=== PATIENT | male | born 1950 | race Caucasian/White ===

== ENCOUNTER 2025-04-30 08:55 | Emergency (ER) | payer MEDICARE, OTHER, SELFPAY ==
--- OUTSIDE RECORDS SUMMARY | 2025-04-30 08:58 | XMS_ITS | Clinical Summary ---
Author Organization [email or web address] Address [address] [place] [id number] Care Team Providers Care Bricklayer Supervisor Name Role Phone Taiwo Moy MD Primary Care Provider Allergies No known active allergies Medications aspirin chewable 81 mg chewable tablet Take 1 tablet by mouth once daily. 0 10/22/19 14 Active nitroglycerin (NITROSTAT) 0.4 mg sublingual tabletIndications: CAD in [place] artery Place 1 tablet under the tongue every 5 minutes if needed for Chest Pain (For chest pain x 3 doses.). 25 tablet 1 06/23/20 16 Active melatonin 5 mg TbDi Take by mouth. 0 08/13/19 19 Active b complex vitamins (SUPER B-50 COMPLEX) capsule Take 1 capsule by mouth once daily. 0 08/13/19 19 Active cholecalciferol (VITAMIN D-3) 2,000 unit capsule Take 1 capsule by mouth once daily. 0 08/13/19 19 Active ibuprofen (ADVIL; MOTRIN) 200 mg tablet Take 1 tablet by mouth 4 times daily if needed. 0 08/13/19 19 Active blood-glucose meterIndications:C ontrolled type 2 diabetes mellitus with complication, without long-term current use of insulin (HC) Dispense meter, test strips, lancets covered by pt ins. E11.9 NIDDM type II - Test 1 time/day 1 Device 07/07/20 19 Active sildenafil citrate (VIAGRA) 100 mg tabletIndications: Erectile dysfunction, unspecified erectile dysfunction type TAKE ONE TABLET BY MOUTH 30 MINUTES TO 4 HOURS PRIOR TO SEXUAL ACTIVITY *MAX OF 100 MG IN 24 HOURS* 6 Tablet 5 01/29/20 23 Active rosuvastatin (CRESTOR) 20 mg tabletIndications: Hyperlipidemia, unspecified hyperlipidemia type TAKE 1 TABLET BY MOUTH DAILY 90 Tablet 2 12/17/19 24 Active empagliflozin (Jardiance) 25 mg tabletIndications: Controlled type 2 diabetes mellitus with complication, without long-term current use of insulin (HC) Take 1 Tablet (25 mg) by mouth once daily. Start after one month on 10mg daily. 90 Tablet 1 03/07/20 24 Active blood sugar diagnostic (Accu-Chek Linda Plus test strp) stripIndications:C ontrolled type 2 diabetes mellitus with complication, without long-term current use of insulin (HC) TEST BLOOD SUGAR ONCE A DAY DIRECTED 100 Each 3 04/30/20 24 Active fluticasone (50 mcg per actuation) nasal solution (FLONASE)Indicatio ns:Rhinitis medicamentosa Inhale 2 Sprays in both nostrils once daily. 16 g 5 07/03/20 24 Active gabapentin 100 mg capsuleIndications :Peripheral sensory neuropathy TAKE 2 CAPSULE BY MOUTH AT BEDTIME 180 Capsule 1 11/12/19 25 Active omeprazole 20 mg Delayed-Release capsuleIndications :Chronic GERD TAKE 1 TABLET(20 MG) BY MOUTH EVERY DAY 90 Capsule 1 12/30/19 25 Active metFORMIN (GLUCOPHAGE XR) 500 mg Extended-Release tabletIndications: Controlled type 2 diabetes mellitus with complication, without long-term current use of insulin (HC) TAKE 2 TABLETS(100 0 MG) BY MOUTH TWICE DAILY WITH MEALS 120 Tablet 02/05/20 25 Active metoprolol tartrate (LOPRESSOR) 25 mg tabletIndications: Essential hypertension TAKE 1 TABLET BY MOUTH TWICE DAILY 180 Tablet 04/09/20 25 Active lisinopriL (PRINIVIL; ZESTRIL) 20 mg tabletIndications: Essential hypertension TAKE 1 TABLET(20 MG) BY MOUTH DAILY 90 Tablet 04/09/20 25 Active lisinopriL 20 mg tabletIndications: Essential hypertension TAKE 1 TABLET(20 MG) BY MOUTH DAILY 90 Tablet 12/30/19 25 025 Discontinued metoprolol tartrate 25 mg tabletIndications: Essential hypertension TAKE 1 TABLET BY MOUTH TWICE DAILY 180 Tablet 12/30/19 25 025 Discontinued Active Problems Problem Noted Date Diagnosed Date Stage 3a chronic kidney disease 11/15/2021 LUIS ENRIQUE 08/22/2019 AHI-25 08/25/2019 Controlled type 2 diabetes m ellitus with complication, without long-term current use of insulin 07/07/2019 Obesity, Class II, BMI 35-39.9 08/13/2018 L5-S1 extruded disk herniation 12/22/2013 Right S1 Radiculopathy 12/22/2013 CAD; NSTEMI, NILSA to RCA 2013. 10/21/2013 Overview (10/21/2013): -10/19/[address] Elevation Myocardial Infarction. Severe single vessel coronary disease in a right dominant system. 100% proximal RCA culprit with KASSANDRA-III flow LV Pressure = 152/45. Drug Eluting Stent to Proximal RCA. Enrolled in post-conditioning trial. Plavix for 1 year Adjustment disorder with depressed mood 01/18/20 09 Unspecified essential hypertension Other and unspecified hyperlipidemia Resolved Problems Problem Noted Date Diagnosed Date Resolved Date Routine adult health maintenance 09/27/2018 07/07/2019 Overview (09/27/2018): Colonoscopy 09/2018 normal, repeat in 10 years CAD in [place] artery 06/23/2016 021 Prediabetes 06/08/2016 07/27/2020 Examination for normal mino rison for clinical research 01/13/2014 11/02/2020 Overview (01/13/2014): Research Study Participant: Post Conditioning II study protocol. Post conditioning -4 (30 second) balloon inflations/deflations prior to stenting or standard of care for STEMI. Will have a cardiac MRI at baseline (before discharge) and 3 and 12 months. Followed in [facility] for research visits. See hard copy chart for study summary. Contact research nurse with questions: Nina Martinez RN @ pager: [phone] Or PI: Karsten Gurrola MD Renal insufficiency 10/23/2013 07/27/19 21 STEMI (ST elevation myocardial infarction) 10/20/2013 11/02/2020 CKD (chronic kidney disease) 08/15/2022 Encounters Date Type Department Care Team Description 04/30/2025 Nurse Triage [address] [place] [address] Taiwo Moy MD High Blood Sugar 04/29/2025 Refill [facility] [address] [place] [address] Taiwo Moy MD Refill Request (Metformin) 04/13/2025 Refill [facility] [address] [place] [address] Taiwo Moy MD Refill Request (Metformin) 04/08/2025 Refill [facility] [address] [place] [address] Taiwo Moy MD Refill Request (Metoprolol Tartrate, Lisinopril) 02/02/2025 Refill [facility] [address] [place] [address] Taiwo Moy MD Refill Request (Metformin) from Last 3 Months Immunizations Immunization Administration Dates Next Due COVID-19 vaccine (Moderna 100mcg/0.5mL) PF, MDV 11/01/2021,06/08/2021,09/15/2020,08/18 COVID-19 vaccine (Oxford Bio[employer]ronometrics-Bio NTech 30mcg/0.3mL) 12YO+ BIVALENT PF, MDV 11/17/2022 Influenza A (H1N1), Inactivated 07/21/2009 Influenza, High-dose Inactivated 03/29/2024 Influenza, High-dose Quadriv alent Inactivated 04/22/2022,03/13/2020 Influenza, IIV3 (Age 6-35 mos) 03/29/2009 Influenza, IIV3 (Age >=3 years) 04/14/20 13,04/09/2012,04/10/2011,04/04,08/24/2004 Influenza, IIV4 06/23/2016,03/18/2015,05/20/2014 Influenza, IIV4 (=>6mos) MDV 07/20/2017 Influenza, Inactivated AIIV4 (Age 65+ Years) Preserv Free 03/24/2023,04/08/2021 Influenza, Inactivated IIV3 (Age 65+ Years) Preserv Free 06/25/2019,08/13/2018 Pneumococcal Poly,23-Valent (Pneumovax) 09/22/2019 Pneumococcal conj 13-Valent (Prevnar 13) 08/13/2018,05/20/2014 Pneumococcal, Unspecified 09/22/2019 RSV, Recombinant ADJ Reconst ituted (Arexvy 120MCG/0.5mL) 04/21/2023 Rabies Vaccine 05/30/1999 Td (Age >=7 Years) 05/26/1999 Tdap 11/02/2020,06/10/2010 Zoster (Shingrix-RZV, recombinant) 01/15/2020, Zoster (Zostavax-ZVL, live) 05/20/2014 Family History Medical History Relation Name Comments Kidney failure Father dialysis towa rds end of life. Cancer-breast Mother Hyperlipidemia Mother Stroke Mother early 50's, now in 80's as of 06/17. Cancer-colon Neg. 1 Cancer-prostate Neg. 2 Cancer-breast Sister 1 Cancer-breast Sister 2 cervical Relation Name Status Comments Father Mother Alive Neg. 1 Neg. 2 Sister 1 Sister 2 Social History Tobacco Use Types Packs/Day Years Used Date Smoking Tobacco: Never Smokeless Tobacco: Never Tobacco Cessation:Counseling Given: No Alcohol Use Standard Drinks/Week Comments Yes 0 (1 standard drink = 0.6 oz pur e alcohol) rare PHQ-2 Answer Date Recorded PHQ-2 TOTAL SCORE 0 07/03/2024 Social Connections Answer Date Recorded Do you often feel lonely or isolated from those around you? 0 07/17/2023 Financial Resource Strain Answer Date R ecorded Difficulty of Paying Living Expenses 3 07/17/2023 Difficulty of Paying Living Expenses Not on file 07/17/2023 Food Insecurity Answer Date Recorded Do you worry your food will run out before you are able to buy more? 1 07/17/2023 Transportation Needs Answer Date Record ed Does lack of transportation keep you from medica l appointments? 1 07/17/2023 Does lack of transportation keep you from work, meetings or getting things that you need? 1 07/17/2023 Housing Stability Answer Date Recorded What is your housing situation today? 1 07/17/2023 Utilities Answer Date Recorded Do you have trouble paying f or utilities (for example, heat, electricity, water, phone)? 1 07/17/2023 Sex and Gender Information Value Date Recorded Sex Assigned at Not on file Legal Sex Male 6:58 AM OUTPATIENT PHLEBOTOMIST Gender Identity Not on file Sexual Orientation Not on file Obstetrics History Last Filed Vital Signs Vital Sign Reading Time Taken Comments Blood Pressure 152/75 07/03/2024 4:39 PM OUTPATIENT PHLEBOTOMIST Pulse 78 07/03/2024 4:13 PM OUTPATIENT PHLEBOTOMIST Temperature 36.3 C (97.4 F) 08/15/2022 9:44 AM OUTPATIENT PHLEBOTOMIST Respiratory Rate 20 06/30/2019 10:4 0 AM OUTPATIENT PHLEBOTOMIST Oxygen Saturation 94% 07/03/2024 4:13 PM OUTPATIENT PHLEBOTOMIST Inhaled Oxygen Concentration - - Weight 117.7 kg (259 lb 6.4 oz) 07/03/2024 4:13 PM OUTPATIENT PHLEBOTOMIST Height 188 cm (6' 2) 07/03/2024 4:13 PM OUTPATIENT PHLEBOTOMIST Body Mass Index 33.3 07/03/2024 4:13 PM OUTPATIENT PHLEBOTOMIST Plan of Treatment Health Maintenance Due Date Last Done Comments COVID-19 vaccine series ( season) 2025 03/29/2024, 04/21/2023, 11/17/2022, Additional history exists Influenza Vaccine (#1) 2025 , 03/24/2023, 04/08/2021, Additional history exists BMI (ht and wt on same day) for age 18+ 07/03/2025 07/03/2024, 11/17/2022, 11/15/2021, Additional history exists Depression screening for age 12+ 07/04/2025 07/04/2024, 07/03/2024, 11/15/2021, Additional history exists Medicare Wellness for age 65+ 07/04/2025 07/03/2024 Colonoscopy through age 75 09/27/202809/27, 09/27/2018, 09/27/2018, Additional history exists Lipids for age 45-75 03/07/2029 03/07/2024, 07/17/2023, 07/17/2023, Additional history exists Tetanus booster 11/02/2030 11/02/2020, 12/09/2009, 05/26/1999 Hepatitis C screening for age 18-79 Completed 03/18/2015 Pneumococcal series for age 50+ Completed 09/22/2019, 09/22/2019, 08/13/2018, Additional history exists Zoster (shingles) series for age 50+ Completed 01/15/2020, 09/22/2019, 05/20/2014 RSV vaccine for adults or Completed 04/21/2023 Hepatitis B series for 19+ Aged Out N o longer eligible based on patient's age to complete this topic Procedures Procedure Name Priority Date/Time Associated Diagnosis Comments LIPID PANEL W REFLEX MEASURED LDL Routine 03/07/2024 9:29 AM CDT Controlled type 2 diabetes mellitus with complication, without long-term current use of insulin (HC) COLONOSCOPY SCREENING Routine 09/27/2018 9:08 AM CDT Screening for colon cancer ANTI HCV Routine 03/18/2015 12:46 PM CDT Need for hepatitis C screening test from Last 3 Months or Most Recently Relevant to Health Maintenance Results * (ABNORMAL) LIPID PANEL W REFLEX MEASURED LDL (03/07/2024 9:29 AM CDT) CHOLESTEROL,TOTAL 131 100 - 199 mg/dL 03/07/2024 6:03 PM CDT [facility] Comment: Cholesterol, Total Reference Ranges Desirable <200 mg/dL Borderline 200-239 mg/dL High >=240 mg/dL TRIGLYCERIDES 296(H) <150 mg/dL 03/07/2024 6:03 PM CDT [facility] HDL CHOLESTEROL 37(L) >40 mg/dL 6:03 PM CDT [facility] NON-HDL CHOLESTEROL 94 <145 mg/dl 03/07/2024 6:03 PM CDT [facility] CHOL/HDL RATIO 3.54 <4.50 03/07/2024 6:03 PM CDT [facility] LDL CHOLESTEROL 35 <=130 mg/dL 03/07/2024 6:03 PM CDT [facility] VLDL CHOLESTEROL 59(H) <=30 mg/dL 03/07/2024 6:03 PM CDT [facility] PROVIDER ORDERED STATUS RANDOM 03/07/2024 6:03 PM CDT [facility] Blood BLOOD SPECIMEN / Unknown Venipuncture / Unknown 03/07/2024 9:29 AM CDT 03/07/2024 9:29 AM CDT us Taiwo Moy MD CHEMISTRY Final Result Performing Organization Address City/Special Care [facility]/ZIP Co de Phone Number [facility] [address] [place] [address], * COLONOSCOPY SCREENING (09/27/2018 9:08 AM CDT) us Taiwo Moy MD GI PROCEDURE ORD Final Result * ANTI HCV [72317.2] (03/18/2015 12:46 PM CDT) HEPATITIS C ANTIBODY Non-Reacti ve Non-Reacti ve 03/18/2015 4:47 PM CDT [facility] Blood specimen (specimen) BLOOD SPECIMEN / Unknown Venipuncture / Unknown 03/18/2015 12:46 PM CDT 03/18/2015 12:46 PM CDT Narrative [facility] - 03/18/2015 4:47 PM CDT Antibodies to HCV not detected; does not exclude the possibility of exposure to HCV. us Taiwo Moy MD SEND OUTS Final Result Performing Organization Address City/Special Care [facility]/ZIP Co de Phone Number [facility] [address] [place] [address], from Last 3 Months or Most Recently Relevant to Health Maintenance Insurance [employer] PPO MR [employer] [facility] [address] [address] [facility] [employer] PPO MR Advance Directives * Full Code (Latest Code Status on File) Date Activated Date Inactivated Comments 10/19/2013 2:33 AM 10/20/2013 6:00 PM Care Teams Bricklayer Supervisor Relationship Specialty Start Date End Date Taiwo Moy MD [address] [place] [address] PCP - General 11/16/06
[2025-04-30 09:00] VITALS: BP 180/79; PULSE 67; RESP 18; TEMP 36.4; O2SAT 97; BMI 32.1
--- NOTE | 2025-04-30 09:08 | ED_ITS ---
HPI - General Adult General Chief complaint: Diabetic Related Problem Stated complaint: High blood sugar Time Seen by Provider: 04/30/25 09:06 History of Present Illness HPI narrative: Patient presents to the [facility] department complaining of a high blood sugar. Patient states he is a type 2 diabetic and has a blood sugar of over 500. Patient states he does not typically take insulin but uses metformin. Patient does not believe this has been going on for very long and typically is in the 200 range. 74-year-old man presenting to the emergency department with concern of high blood sugar. He ran out of his usual metformin, sounds like 1000 mg twice a day, maybe around a month ago. Also around the time that it ran out he stopped checking his blood sugars. He does note that his blood sugar now though is over 500. Urinating as frequently. He is thirsty. He has been increasing his fluid intake. Little bit of a cough more recently. No fever. No rashes. No pains. 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 He would just like to leave the emergency department with some improved blood sugars. Related Data Home Medications ?Medication ?Instructions ?Recorded ?Confirmed gabapentin 100 mg capsule mg PO 12/15/23 06/11/24 lisinopril 10 mg tablet mg PO 12/15/23 06/11/24 metformin 500 mg tablet,extended 1,000 mg PO BID 12/1404/30/25 release 24 hr metoprolol tartrate 25 mg tablet 25 mg PO BID 12/15/23 04/30/25 omeprazole 20 mg capsule,delayed mg PO 12/15/23 release Previous Rx's ?Medication ?Instructions ?Recorded budesonide-formoterol HFA 160 2 puff inhalation BID #1 0.2 grams 04/30/24 mcg-4.5 mcg/actuation aerosol inhaler Allergies Allergy/AdvReac Type Severity Reaction Status Date / Time No Known Drug Allergies Allergy Verified 04/30/25 09:04 Review of Systems Status of ROS: Reports: 6 or more systems reviewed and unremarkable except as noted in History and below [facility] Medical History Myocardial infarction ?I21.9 - Acute myocardial infarction, unspecified (ICD-10) Social History Smoking Status: Never smoker Do you use any of these nicotine containing products: None Second hand tobacco smoke exposure: No How often do you have a drink containing alcohol: never How often do you have six or more drinks on one occasion: Never AUDIT-C Alcohol total score: 0 Non-prescribed substance use: denies use Exam Narrative: Exam Narrative: Pleasant. NAD. Breathing easily. Lungs are clear. Heart in regular rate and rhythm. I do not smell ketones. Oropharynx is a little sticky. Cranial nerves 2-12 to be intact. Moving all extremities without difficulty. He is well- perfused without edema. Abdomen is overweight soft nontender. Const: Vital Signs, click to edit/add: Vital Signs - 24 hr 04/30/25 09:00 Temperature 97.5 F L Pulse Rate [Right Pulse Oximeter] 67 Respiratory Rate 18 Blood Pressure [Ri ght Upper Arm] 180/79 H Pulse Oximetry 97 Oxygen Delivery Me thod Room Air Documenting provider has reviewed patient's vital signs: yes Course Vital Signs Vital signs: Initial Vital Signs Temperature 97.5 F L 04/30/25 09:00 Temperature Source Temporal Artery Scan 04/30/25 09:00 Pulse Rate 67 04/30/25 09:00 Pulse Rhythm Regular 04/30/25 09:00 Pulse Strength 3+ Normal 04/30/25 09:00 Respiratory Rate 18 04/30/25 09:00 Blood Pressure 180/79 H 04/30/25 09:00 Blood Pressure Mean 112 H 04/30/25 09:00 Blood Pressure Position Sitting 04/30/25 09:00 Pulse Oximetry 97 04/30/25 09:00 Oxygen Delivery Method Room Air 04/30/25 09:00 Vital Signs Temperature 97.5 F L 04/30/25 09:00 Pulse Rate 67 04/30/25 09:00 Respiratory Rate 18 04/30/25 09:00 Blood Pressure 180/79 H 04/30/25 09:00 Pulse Oximetry 97 04/30/25 09:00 Oxygen Delivery Method Room Air 04/30/25 09:00 Temperature 97.5 F L 04/30/25 09:00 Pulse Rate 67 04/30/25 09:00 Respiratory Rate 18 04/30/25 09:00 Blood Pressure 180/79 H 10/23/25 09:00 Pulse Oximetry 97 04/30/25 09:00 Oxygen Delivery Method Room Air 04/30/25 09:00 Medications Administered Medications: Discontinued Medications Generic Name Dose Route Start Last Admin Trade Name Sabino PRN Reason Stop Dose Admin Sodium Chloride 1,000 mls @ 1,000 mls/hr 04/30/25 09:18 04/30/25 11:52 0.9 % Sodium Chloride 1000 Ml IV 04/30/25 10:17 Infused .Q1H ONE Infusion Insulin Human Regular 15 unit 04/30/25 09:18 04/30/25 10:08 Insulin Regular, Human 100 Unit/Ml Vial IVP 04/30/25 09:19 15 unit ONCE ONE Administration Medical Decision Making MDM Narrative Medical decision making narrative: Will offer IV hydration. Check labs for red flags; evidence of infection. Verify liver and renal function. Give some insulin which I discussed will be likely minimal and with transient effect on blood sugar. Get back on usual medication regimen with close follow-up. Given a L normal saline. Labs show initial labs blood sugar of 459. Was dose with 15 units of regular insulin. Labs reassuring. Not acidotic. Normal white count. Creatinine of 1.7 which he says is not atypical with some degree of renal dysfunction. I calculate corrected sodium at 136 Recheck blood sugar an hour after dosing insulin and blood sugar was in the mid 200s. We did spend some time discussing mechanism of medications and concerns of side effects by Mr. Pang He feels well and requesting departure. It would seem that nonadherence to medical treatment is the likely cause for this hyperglycemia. See patient discharge plan for further discussion Be sure you are following a good diabetic diet. Stay well-hydrated. Over the next week consider sugar free drinks that would contain electrolytes. Try to get in a little heart pumping exercise every day. For now continue with your metformin taking at least 500 mg twice daily. I think you would be okay to take a full dose other than your concerns of potential side effects. I would try to schedule with your primary care provider to be seen as soon as possible to discuss further diabetic management per your concern. In your discharge paperwork should be a printout of your labs for today. Medical Records Medical records reviewed: Yes I reviewed the patient's medical records Lab Data Lab results reviewed: Yes I reviewed the patient's lab results Labs: Lab Results 04/30/25 04/30/25 Range/Units 09:37 10:28 WBC 7.21 (4.50-11.00) K/uL RBC 5.36 (4.30-5.90) m/uL Hgb 16.4 (13.5-17.5) gm/dL Hct 47.1 (37.0-53.0) % MCV 88 (80-100) fL MCH 31 (26-34) pg MCHC 35 (32-36) gm/dL RDW Coeff of Camille 12.6 (11.5-15.5) % Plt Count 166 (140-440) K/uL Neut % (Auto) 62.6 (42.0-72.0) % Lymph % (Auto) 21.1 (20-44) % Travis % (Auto) 7.6 (0.0-11.0) % Eos % (Auto) 7.4 H (0.0-7.0) % Baso % (Auto) 1.0 (0.0-3.0) % Neut # (Auto) 4.52 (1.7-7.0) K/uL Lymph # (Auto) 1.52 (0.90-2.90) K/uL Travis # (Auto) 0.50 (0.00-0.90) K/UL Eos # (Auto) 0.50 (0.00-0.50) K/uL Baso # (Auto) 0.07 (0.00-0.30) K/uL Abs Immat Gran (auto) 0.02 (0.00-0.30) K/uL Imm/Tot Granulo (auto) 0.3 % VBG pH 7.318 L (7.32-7.43) VBG pCO2 47 (40-50) mmHG VBG pO2 < 30.1 (25-47) mmHG VBG HCO3 24 (21-28) mmol/L Sodium 130 L (135-149) mmol/L Potassium 4.8 (3.6-5.1) mmol/L Chloride 96 (96-114) mmol/L Carbon Dioxide 23 (20-32) mmol/L Anion Gap 11 (7-15) mEq/L BUN 40 H (7-30) mg/dL Creatinine 1.7 H (0.5-1.5) mg/dL Estimated Creat Clear 45.67 Estimated GFR 42 ml/min Glucose 459 H* (60-115) mg/dL Lactate 1.7 (0.5-1.9) mmol/L Calcium 9.8 (8.4-10.6) mg/dL Total Bilirubin 0.8 (0.1-1.5) mg/dL Direct Bilirubin 0.4 (0.0-0.5) mg/dL AST 49 H (12-35) U/L ALT 57 H (4-50) U/L Alkaline Phosphatase 145 (40-150) U/L Total Protein 7.2 (6.0-8.3) g/dL Albumin 4.3 (3.3-5.0) g/dL Urine Color Yellow (Yellow) Urine Appearance Clear (Clear) Urine pH 5.0 (5.0-8.5) Ur Specific [place] 1.010 (1.000-1.030) Urine Protein Negative (Negative) Urine Glucose (UA) 3+ A (Negative) Urine Ketones Negative (Negative) Urine Blood Negative (Negative) Urine Nitrite Negative (Negative) Urine Bilirubin Negative (Negative) Urine Urobilinogen 0.2 (0.2-1.0) Ur Leukocyte Esterase Negative (Negative) Urine RBC 0-2 (0-2) Urine WBC 0-2 (0-5) Ur Squamous Epith Cells None (None-Few) Urine Bacteria None (None) Discharge Plan Discharge Clinical Impression: Hyperglycemia, Hyponatremia Patient Disposition: Home, Self-Care Condition: Improved Additional Instructions: Be sure you are following a good diabetic diet. Stay well-hydrated. Over the next week consider sugar free drinks that would contain electrolytes. Try to get in a little heart pumping exercise every day. For now continue with your metformin taking at least 500 mg twice daily. I think you would be okay to take a full dose other than your concerns of potential side effects. I would try to schedule with your primary care provider to be seen as soon as possible to discuss further diabetic management per your concern. In your discharge paperwork should be a printout of your labs for today. Prescriptions: No Action omeprazole 20 mg capsule,delayed release(DR/EC) PO metformin 500 mg tablet extended release 24 hr 1,000 mg PO BID metoprolol tartrate 25 mg tablet 25 mg PO BID lisinopril 10 mg tablet PO gabapentin 100 mg capsule PO budesonide-formoterol 160-4.5 mcg/actuation HFA aerosol inhaler 2 puff inhalation BID Qty: 10.2 0RF Rx Instructions: OK to use every 4 hours between scheduled doses as needed for shortness of breath/wheezing. Be sure to rinse mouth with water and spit out after each use. Follow Up/Referrals: Taiwo Moy MD [Primary Care Provider, Family Practice] Stand Alone Forms: [facility] Info Instructions Procedures ABG Interpretation ABG Results: 04/30/25 09:37 VBG pH 7.318 L VBG pCO2 47 VBG pO2 < 30.1 VBG HCO3 24
[2025-04-30 09:41] LABS: HCO3 VBG 24 mmol/L (21-28); Lactate* 1.7 mmol/L (0.5-1.9); PCO2 VBG 47 mmHG (40-50); PO2 VBG < 30.1 mmHG (25-47); pH VBG 7.318 (7.32-7.43)
[2025-04-30 09:47] LABS: Hematocrit* 47.1 % (37.0-53.0); Hemoglobin* 16.4 gm/dL (13.5-17.5); Immature Granulocytes Abs Auto 0.02 K/uL (0.00-0.30); Immature Granulocytes Pct Auto 0.3 %; Lymphocytes Absolute Auto 1.52 K/uL (0.90-2.90); Mean Corpuscular HGB Conc 35 gm/dL (32-36); Mean Corpuscular Hemoglobin 31 pg (26-34); Mean Corpuscular Volume 88 fL (80-100); RDW Coefficient of Variation % 12.6 % (11.5-15.5); Red Blood Count* 5.36 m/uL (4.30-5.90); White Blood Count* 7.21 K/uL (4.50-11.00)
[2025-04-30 09:55] LABS: Slide Review Reflex No
[2025-04-30 09:58] LABS: Albumin* 4.3 g/dL (3.3-5.0); Chloride* 96 mmol/L (96-114); Potassium* 4.8 mmol/L (3.6-5.1); Sodium* 130 mmol/L (135-149)
[2025-04-30 10:01] LABS: Alanine Aminotransferase* 57 U/L (4-50); Alkaline Phosphatase* 145 U/L (40-150); Anion Gap 11 mEq/L (7-15); Aspartate Amino Transferase* 49 U/L (12-35); Bilirubin Direct* 0.4 mg/dL (0.0-0.5); Bilirubin Total* 0.8 mg/dL (0.1-1.5); Blood Urea Nitrogen* 40 mg/dL (7-30); Carbon Dioxide* 23 mmol/L (20-32); Creatinine* 1.7 mg/dL (0.5-1.5); Est. Creatinine Clearance* 45.67; Estimated Glomerular Filt Rate 42 ml/min; Total Protein* 7.2 g/dL (6.0-8.3)
[2025-04-30 10:02] LABS: Calcium* 9.8 mg/dL (8.4-10.6)
[2025-04-30] MEDS: INSULIN REGULAR, HUMAN 100 UNIT/ML VIAL 15 UNIT IVP (10:08)
[2025-04-30 10:10] LABS: Glucose* 459 mg/dL (60-115)
[2025-04-30 10:34] LABS: Appearance Urine Clear (Clear)
== END 2025-04-30 12:24 | disposition home or self-care (01) ==
PROVIDERS: Emergency Provider Family Medicine; PCP Family Medicine
DX: E11.65 Type 2 diabetes mellitus with hyperglycemia (principal); E87.1 Hypo-osmolality and hyponatremia
CPT/HCPCS: 36415; 80048; 80076; 81001; 82803; 82962; 83605; 85025; 99284; J1815; J7030